=== PATIENT | male | born 1990 | race American Indian/Alaskan Native ===

== ENCOUNTER 2019-09-09 10:27 | Emergency (ER) | payer SELFPAY ==
--- NOTE | 2019-09-09 11:32 | Emergency Department Report ---
ED Rash HPI - HPI Chief Complaint: Skin Rash Stated Complaint: SWOLLEN FACE Time Seen by Provider: 09/09/19 11:06 Duration: 2 Days Location: Other (face and ears) Suspected Cause: Unknown Rash Symptoms: Yes Facial Swelling (mild), Yes Peeling, No Itching, No Tongue/Oral Swelling, No Breathing Difficulties, No Choking Sensation, No Wheezing/Dyspnea, No Blistering, No Fever, No Lightheaded, No Malaise, No Myalgias Severity: moderate Other History: 29-year-old male presents with worsening facial tingling and rash for the past 2 days. Patient states she hasn't taken antibiotics, prednisone and antifungal this past week. Patient states symptoms are not getting better. He denies fevers/chills/nausea vomiting or any other symptoms. She sits rashes use. Full due to the swelling but no itching. He denies taking any other medications prior to onset of symptoms, ED Review of Systems ROS: Stated complaint: SWOLLEN FACE Other details as noted in HPI Comment: All other systems reviewed and negative ED Past Medical Hx - Past Medical History Previous Medical History?: No - Surgical History Past Surgical History?: No - Social History Smoking Status: Current Every Day Smoker Substance Use Type: Marijuana - Medications Home Medications: Home Medications Medication Instructions Recorded Confirmed Last Taken Type Cetirizine HCl [ZyrTEC] 10 mg PO DAILY #30 capsule 08/13/19 Unknown Rx predniSONE [Deltasone] 20 mg PO DAILY #5 tablet 08/13/19 Unknown Rx Penicillin V Potassium 500 mg PO QID #40 tablet 09/09/19 Unknown Rx Triamcinolone 0.1% [Kenalog 0.1% 1 applic TP TID #4 tube 09/09/19 Unknown Rx CREAM] Rash Exam - Exam General: Vital signs noted. No distress. Alert and acting appropriately. HEENT: No Periorbital Edema, No Conjuctival Injection, No Chemosis, No Perioral Edema, No Tongue Edema, No Uvular Edema, No Compromised Airway, No Drooling Lungs: Yes Good Air Exchange (Normal Breath Sounds), No Wheezes, No Ronchi, No Stridor, No Cough, No Labored Respirations, No Retractions, No Use of Accessory Muscles, No Other Abnormal Lung Sounds Heart: Yes Regular, No Murmur Skin: Yes Weeping, Yes Tenderness, Yes Erythema, No Urticarial Rash, No Maculopapular Rash, No Morbilliform rash, No Bulla(e), No Excoriations, No Edema, No Encrustations, No Other Other: Positive: Abdomen Normal, Neurologic Normal, Musculoskeletal Normal Critical care attestation.: If time is entered above; I have spent that time in minutes in the direct care of this critically ill patient, excluding procedure time. ED Disposition Clinical Impression: Rash and other nonspecific skin eruption Disposition: TO HOME OR SELFCARE Is pt being admited?: No Does the pt Need Aspirin: No Condition: Stable Instructions: Impetigo (ED), Acute Rash (ED) Additional Instructions: Make sure to follow up with the primary care physician as discussed. Take all your medications as you've been prescribed. If you have any worsening symptoms or develop new symptoms please return to ED immediately. Prescriptions: Triamcinolone 0.1% [Kenalog 0.1% CREAM] 1 applic TP TID #4 tube Penicillin V Potassium 500 mg PO QID #40 tablet Referrals: YODIT CARRANZA MD [Staff Physician] - 3-5 Days Forms: Work/School Release Form(ED) Time of Disposition: 11:52
[2019-09-09] MEDS ORDERED: DECADRON IM ONE (11:43)
[2019-09-09 12:43] VITALS: BP 142/81
== END 2019-09-09 12:41 | disposition home or self-care (01) ==
LOC: ED 10:27
DX: R21 Rash and other nonspecific skin eruption (principal); F17.200 Nicotine dependence, unspecified, uncomplicated; F12.10 Cannabis abuse, uncomplicated; Z79.899 Other long term (current) drug therapy; Z91.013 Allergy to seafood
CPT/HCPCS: 96372; 99282; J1100

== ENCOUNTER 2019-11-09 13:14 | Emergency (ER) | payer SELFPAY ==
[2019-11-09 17:59] VITALS: BP 125/72
== END 2019-11-09 17:59 | disposition home or self-care (01) ==
LOC: ED 13:14
DX: L30.9 Dermatitis, unspecified (principal); F17.200 Nicotine dependence, unspecified, uncomplicated; Z79.899 Other long term (current) drug therapy; Z91.013 Allergy to seafood
CPT/HCPCS: 36415; 80048; 85025; 96374; 96375; 96376; 99283; J2270; J2405; J2930

== ENCOUNTER 2019-12-09 17:35 | Emergency (ER) | payer SELFPAY ==
[2019-12-09 19:49] VITALS: BP 133/90
--- NOTE | 2019-12-09 19:58 | Emergency Department Report ---
ED Rash HPI - HPI Chief Complaint: Skin Rash Stated Complaint: FACE SWOLLEN Time Seen by Provider: 12/09/19 19:48 Duration: chronic histor but worsen since August2019 Location: Other (FAce and arms) Rash Symptoms: Yes Itching, Yes Peeling, No Breathing Difficulties, No Choking Sensation, No Wheezing/Dyspnea Severity: severe (eczema flare up) ED Review of Systems ROS: Stated complaint: FACE SWOLLEN Other details as noted in HPI Comment: All other systems reviewed and negative ED Past Medical Hx - Past Medical History Previous Medical History?: Yes Additional medical history: Eczema - Surgical History Past Surgical History?: No - Social History Smoking Status: Never Smoker Substance Use Type: None - Medications Home Medications: Home Medications Medication Instructions Recorded Confirmed Last Taken Type Cetirizine HCl [ZyrTEC] 10 mg PO DAILY #30 capsule 08/13/19 Unknown Rx predniSONE [Deltasone] 20 mg PO DAILY #5 tablet 08/13/19 Unknown Rx Penicillin V Potassium 500 mg PO QID #40 tablet 09/09/19 Unknown Rx Triamcinolone 0.1% [Kenalog 0.1% 1 applic TP TID #4 tube 09/09/19 Unknown Rx CREAM] Ondansetron [Zofran Odt] 4 mg PO Q8HR PRN #14 tab.rapdis 11/09/19 Unknown Rx Prednisone [predniSONE 10 mg 10 mg PO .TAPER #1 tab.ds.pk 11/09/19 Unknown Rx (6-Day Pack, 21 Tabs)] traMADoL [Ultram 50 MG tab] 50 mg PO Q4HR PRN #14 tablet 11/09/19 Unknown Rx Betamethasone/Propylene Glyc 1 gm TP BID #90 oint...g. 12/09/19 Unknown Rx [Diprolene 0.05% Ointment] Chlorhexidine Gluconate 5 ml TP BID #240 liquid 12/09/19 Unknown Rx [Antiseptic Skin Cleanser] hydrOXYzine HCL [Atarax] 25 mg PO Q6HR PRN #30 tablet 12/09/19 Unknown Rx predniSONE [Deltasone] 50 mg PO QDAY #7 tab 12/09/19 Unknown Rx Rash Exam - Exam General: Vital signs noted. No distress. Alert and acting appropriately. HEENT: No Periorbital Edema, No Conjuctival Injection, No Chemosis, No Perioral Edema, No Tongue Edema, No Uvular Edema, No Compromised Airway, No Drooling Lungs: Yes Good Air Exchange, No Wheezes, No Ronchi, No Stridor, No Cough, No Labored Respirations, No Retractions, No Use of Accessory Muscles, No Other Abnormal Lung Sounds Heart: Yes Regular, No Murmur Front/Back of Body, Lg (Color): 1 - severe eczema to face. excoratedwtih broken skin 2 - severe eczema rash to both hands Skin: Yes Excoriations (severe eczema rash to face andhand with severalfissures.), Yes Encrustations, No Urticarial Rash, No Maculopapular Rash, No Morbilliform rash, No Bulla(e) ED Course Vital Signs 12/09/19 19:48 Temperature 98.3 F Pulse Rate 107 H Respiratory 16 Rate Blood Pressure 133/90 O2 Sat by Pulse 98 Oximetry Critical care attestation.: If time is entered above; I have spent that time in minutes in the direct care of this critically ill patient, excluding procedure time. ED Disposition Clinical Impression: Eczema Disposition: DC-01 TO HOME OR SELFCARE Is pt being admited?: No Does the pt Need Aspirin: No Condition: Stable Instructions: Eczema (ED) Prescriptions: Chlorhexidine Gluconate [Antiseptic Skin Cleanser] 5 ml TP BID #240 liquid hydrOXYzine HCL [Atarax] 25 mg PO Q6HR PRN #30 tablet PRN Reason: Itching predniSONE [Deltasone] 50 mg PO QDAY #7 tab Betamethasone/Propylene Glyc [Diprolene 0.05% Ointment] 1 gm TP BID #90 oint...g. Referrals: RYNE NUNN MD [Staff Physician] - 3-5 Days
== END 2019-12-09 20:00 | disposition home or self-care (01) ==
LOC: ED 17:35
DX: L30.9 Dermatitis, unspecified (principal); Z79.899 Other long term (current) drug therapy; Z91.013 Allergy to seafood

== ENCOUNTER 2020-03-24 05:52 | Emergency (ER) | payer MEDICAID ==
[2020-03-24] MEDS ORDERED: dexAMETHasone 20 MG/5 ML VIAL IM ONE (06:19)
[2020-03-24] MEDS ORDERED: hydrOXYzine HCL 25 MG TAB PO ONE (06:20)
--- NOTE | 2020-03-24 06:21 | Emergency Department Report ---
ED General Adult HPI - General Chief complaint: Skin/Abscess/Foreign Body Stated complaint: ALLERGIC REACTION Time Seen by Provider: 03/24/20 06:08 Source: patient Mode of arrival: Ambulatory Limitations: No Limitations - History of Present Illness Initial comments: Patient presents to the emergency department with a chief complaint of eczema flare. Patient states that he has not had medication for his eczema quite some time and over the last couple of days it has flared up. Patient complains of severe itching and cracking of the skin of his arms. Patient states he normally takes steroids by mouth and steroid cream to help with his eczema. Patient has no other complaints. -: Gradual Location: upper extremity Radiation: non-radiation Severity scale (0 -10): 0 Consistency: constant Improves with: none Worsens with: none Associated Symptoms: denies other symptoms Treatments Prior to Arrival: none - Related Data Previous Rx's Medication Instructions Recorded Last Taken Type Cetirizine HCl [ZyrTEC] 10 mg PO DAILY #30 capsule 08/13/19 Unknown Rx predniSONE [Deltasone] 20 mg PO DAILY #5 tablet 08/13/19 Unknown Rx Penicillin V Potassium 500 mg PO QID #40 tablet 09/09/19 Unknown Rx Triamcinolone 0.1% [Kenalog 0.1% 1 applic TP TID #4 tube 09/09/19 Unknown Rx CREAM] Ondansetron [Zofran Odt] 4 mg PO Q8HR PRN #14 tab.rapdis 11/09/19 Unknown Rx Prednisone [predniSONE 10 mg 10 mg PO .TAPER #1 tab.ds.pk 11/09/19 Unknown Rx (6-Day Pack, 21 Tabs)] traMADoL [Ultram 50 MG tab] 50 mg PO Q4HR PRN #14 tablet 11/09/19 Unknown Rx Betamethasone/Propylene Glyc 1 gm TP BID #90 oint...g. 12/09/19 Unknown Rx [Diprolene 0.05% Ointment] Chlorhexidine Gluconate 5 ml TP BID #240 liquid 12/09/19 Unknown Rx [Antiseptic Skin Cleanser] hydrOXYzine HCL [Atarax] 25 mg PO Q6HR PRN #30 tablet 12/09/19 Unknown Rx predniSONE [Deltasone] 50 mg PO QDAY #7 tab 12/09/19 Unknown Rx Cetirizine HCl/Pseudoephedrine 1 each PO DAILY 30 Days #30 03/24/20 Unknown Rx [Zyrtec-D Tablet] tab.er.12h Prednisone [predniSONE 10 mg 10 mg PO .TAPER #1 tab.ds.pk 03/24/20 Unknown Rx (6-Day Pack, 21 Tabs)] Triamcinolone 0.1% [Kenalog 0.1% 1 applic TP TID #1 tube 03/24/20 Unknown Rx CREAM] hydrOXYzine HCL [Atarax] 25 mg PO Q6HR PRN #24 tablet 03/24/20 Unknown Rx Allergies Allergy/AdvReac Type Severity Reaction Status Date / Time shellfish derived Allergy Angioedema Verified 08/13/19 12:22 ED Review of Systems ROS: Stated complaint: ALLERGIC REACTION Other details as noted in HPI Comment: All other systems reviewed and negative Constitutional: denies: chills, fever Eyes: denies: eye pain, eye discharge, vision change ENT: denies: ear pain, throat pain Respiratory: denies: cough, shortness of breath, wheezing Cardiovascular: denies: chest pain, palpitations Endocrine: no symptoms reported Gastrointestinal: denies: abdominal pain, nausea, diarrhea Genitourinary: denies: urgency, dysuria Musculoskeletal: denies: back pain, joint swelling, arthralgia Skin: rash, other. denies: lesions Neurological: denies: headache, weakness, paresthesias Psychiatric: denies: anxiety, depression Hematological/Lymphatic: denies: easy bleeding, easy bruising ED Past Medical Hx - Past Medical History Previous Medical History?: Yes Additional medical history: Eczema - Surgical History Past Surgical History?: No - Social History Smoking Status: Current Every Day Smoker Substance Use Type: None - Medications Home Medications: Home Medications Medication Instructions Recorded Confirmed Last Taken Type Cetirizine HCl [ZyrTEC] 10 mg PO DAILY #30 capsule 08/13/19 Unknown Rx predniSONE [Deltasone] 20 mg PO DAILY #5 tablet 08/13/19 Unknown Rx Penicillin V Potassium 500 mg PO QID #40 tablet 09/09/19 Unknown Rx Triamcinolone 0.1% [Kenalog 0.1% 1 applic TP TID #4 tube 09/09/19 Unknown Rx CREAM] Ondansetron [Zofran Odt] 4 mg PO Q8HR PRN #14 tab.rapdis 11/09/19 Unknown Rx Prednisone [predniSONE 10 mg 10 mg PO .TAPER #1 tab.ds.pk 11/09/19 Unknown Rx (6-Day Pack, 21 Tabs)] traMADoL [Ultram 50 MG tab] 50 mg PO Q4HR PRN #14 tablet 11/09/19 Unknown Rx Betamethasone/Propylene Glyc 1 gm TP BID #90 oint...g. 12/09/19 Unknown Rx [Diprolene 0.05% Ointment] Chlorhexidine Gluconate 5 ml TP BID #240 liquid 12/09/19 Unknown Rx [Antiseptic Skin Cleanser] hydrOXYzine HCL [Atarax] 25 mg PO Q6HR PRN #30 tablet 12/09/19 Unknown Rx predniSONE [Deltasone] 50 mg PO QDAY #7 tab 12/09/19 Unknown Rx Cetirizine HCl/Pseudoephedrine 1 each PO DAILY 30 Days #30 03/24/20 Unknown Rx [Zyrtec-D Tablet] tab.er.12h Prednisone [predniSONE 10 mg 10 mg PO .TAPER #1 tab.ds.pk 03/24/20 Unknown Rx (6-Day Pack, 21 Tabs)] Triamcinolone 0.1% [Kenalog 0.1% 1 applic TP TID #1 tube 03/24/20 Unknown Rx CREAM] hydrOXYzine HCL [Atarax] 25 mg PO Q6HR PRN #24 tablet 03/24/20 Unknown Rx ED Physical Exam - General Limitations: No Limitations General appearance: alert, in no apparent distress - Head Head exam: Present: atraumatic, normocephalic - Eye Eye exam: Present: normal appearance, PERRL, EOMI - ENT ENT exam: Present: mucous membranes moist - Neck Neck exam: Present: normal inspection - Respiratory Respiratory exam: Present: normal lung sounds bilaterally. Absent: respiratory distress - Cardiovascular Cardiovascular Exam: Present: regular rate, normal rhythm. Absent: systolic murmur, diastolic murmur, rubs, gallop - GI/Abdominal GI/Abdominal exam: Present: soft - Rectal Rectal exam: Present: deferred - Extremities Exam Extremities exam: Present: other (Patient has cracking of the skin at the joints of his elbow and eczema-like rash that covers his entire upper extremities) - Back Exam Back exam: Present: normal inspection - Neurological Exam Neurological exam: Present: alert, oriented X3, CN II-XII intact. Absent: motor sensory deficit - Psychiatric Psychiatric exam: Present: normal affect, normal mood - Skin Skin exam: Present: warm, dry, intact, normal color. Absent: rash ED Course Vital Signs 03/24/20 05:55 Temperature 98.4 F Pulse Rate 124 H Respiratory 20 Rate Blood Pressure 174/132 O2 Sat by Pulse 100 Oximetry ED Medical Decision Making - Medical Decision Making Plan of care discussed with patient Critical care attestation.: If time is entered above; I have spent that time in minutes in the direct care of this critically ill patient, excluding procedure time. ED Disposition Clinical Impression: Acute eczema Disposition: TO HOME OR SELFCARE Is pt being admited?: No Does the pt Need Aspirin: No Condition: Stable Instructions: Eczema (ED) Additional Instructions: return if worse Prescriptions: hydrOXYzine HCL [Atarax] 25 mg PO Q6HR PRN #24 tablet PRN Reason: Itching Triamcinolone 0.1% [Kenalog 0.1% CREAM] 1 applic TP TID #1 tube Prednisone [predniSONE 10 mg (6-Day Pack, 21 Tabs)] 10 mg PO .TAPER #1 tab.ds.pk Cetirizine HCl/Pseudoephedrine [Zyrtec-D Tablet] 1 each PO DAILY 30 Days #30 tab.er.12h Referrals: PRIMARY CARE, [Primary Care Provider] - 3-5 Days [facility] [Provider Group] - 3-5 Days [facility] [Provider Group] - 3-5 Days [facility] [place] [Outside] - 3-5 Days Time of Disposition: 06:29
[2020-03-24 06:59] VITALS: BP 171/92
== END 2020-03-24 06:55 | disposition home or self-care (01) ==
LOC: ED 05:52
DX: L30.9 Dermatitis, unspecified (principal); F17.200 Nicotine dependence, unspecified, uncomplicated; Z79.899 Other long term (current) drug therapy; Z91.013 Allergy to seafood
CPT/HCPCS: 96372; 99282; J1100

== ENCOUNTER 2021-04-07 10:52 | Emergency (ER) | payer MEDICAID ==
[2021-04-07 11:08] VITALS: BP 120/92
[2021-04-07] MEDS ORDERED: PE/MO/PET,WH 10 APPLIC/28 GM TUBE PR STA (11:55)
[2021-04-07] MEDS ORDERED: PHENYLEPHRINE/SHARK LIVER/CCB 0.25/3/85.5%(PREP H) RECT SUPP PR STA (11:55)
--- NOTE | 2021-04-07 11:55 | Emergency Department Report ---
- General Chief complaint: Rectal Pain Stated complaint: POSS HEMORROID Time Seen by Provider: 04/07/21 11:46 Source: patient Mode of arrival: Ambulatory Limitations: No Limitations - History of Present Illness Initial comments: Patient is a 30-year-old -[place] male that comes to the emergency room complaining of a bump near his anus. Patient denies any bleeding. Patient has no history of hemorrhoids. Patient is HIV positive he says he does not receive anal sex. Patient does report that he is prone to constipation and that he has had constipation. Patient denies any nausea vomiting diarrhea or abdominal pain . Patient denies any fever or chills. Patient denies any discharge coming from the bump MD complaint: other -: Gradual - Related Data Previous Rx's Medication Instructions Recorded Last Taken Type predniSONE [Deltasone] 20 mg PO DAILY #5 tablet 08/13/19 Unknown Rx Docusate Sodium [Colace] 100 mg PO BID #60 capsule 04/07/21 Unknown Rx Phenyleph/Pramoxin/Glycr/W.pet 51 gm RC BID #1 tube 04/07/21 Unknown Rx [Preparation H Cream] Phenylephrine HCl/[place] Butter 1 each RC DAILY #7 supp.rect 04/07/21 Unknown Rx [Preparation H Suppository] Allergies Allergy/AdvReac Type Severity Reaction Status Date / Time shellfish derived Allergy Angioedema Verified 08/13/19 12:22 Abscess Boil HPI - HPI Chief Complaint: Rectal Pain Stated Complaint: POSS HEMORROID Time Seen by Provider: 04/07/21 11:46 Home Medications: Previous Rx's Medication Instructions Recorded Last Taken Type predniSONE [Deltasone] 20 mg PO DAILY #5 tablet 08/13/19 Unknown Rx Docusate Sodium [Colace] 100 mg PO BID #60 capsule 04/07/21 Unknown Rx Phenyleph/Pramoxin/Glycr/W.pet 51 gm RC BID #1 tube 04/07/21 Unknown Rx [Preparation H Cream] Phenylephrine HCl/[place] Butter 1 each RC DAILY #7 supp.rect 04/07/21 Unknown Rx [Preparation H Suppository] Allergies/Adverse Reactions: Allergies Allergy/AdvReac Type Severity Reaction Status Date / Time shellfish derived Allergy Angioedema Verified 08/13/19 12:22 ED Review of Systems ROS: Stated complaint: POSS HEMORROID Other details as noted in HPI Comment: All other systems reviewed and negative ED Past Medical Hx - Past Medical History Previous Medical History?: Yes Hx HIV: Yes Additional medical history: Eczema - Surgical History Past Surgical History?: No - Family History Family history: no significant - Social History Smoking Status: Never Smoker Substance Use Type: None - Medications Home Medications: Home Medications Medication Instructions Recorded Confirmed Last Taken Type predniSONE [Deltasone] 20 mg PO DAILY #5 tablet 08/13/19 Unknown Rx Docusate Sodium [Colace] 100 mg PO BID #60 capsule 04/07/21 Unknown Rx Phenyleph/Pramoxin/Glycr/W.pet 51 gm RC BID #1 tube 04/07/21 Unknown Rx [Preparation H Cream] Phenylephrine HCl/[place] Butter 1 each RC DAILY #7 supp.rect 04/07/21 Unknown Rx [Preparation H Suppository] ED Physical Exam - General Limitations: No Limitations General appearance: alert, in no apparent distress - Head Head exam: Present: atraumatic, normocephalic - Eye Eye exam: Present: normal appearance - ENT ENT exam: Present: mucous membranes moist - Neck Neck exam: Present: normal inspection - Respiratory Respiratory exam: Present: normal lung sounds bilaterally. Absent: respiratory distress - Cardiovascular Cardiovascular Exam: Present: regular rate, normal rhythm. Absent: systolic murmur, diastolic murmur, rubs, gallop - GI/Abdominal GI/Abdominal exam: Present: soft, normal bowel sounds - Rectal Rectal exam: Present: other (HEMORRHOID) - Extremities Exam Extremities exam: Present: normal inspection - Back Exam Back exam: Present: normal inspection - Neurological Exam Neurological exam: Present: alert, oriented X3 - Psychiatric Psychiatric exam: Present: normal affect, normal mood - Skin Skin exam: Present: warm, dry, intact, normal color. Absent: rash ED Course Vital Signs 04/07/21 04/07/21 11:07 12:10 Temperature 98.6 F Pulse Rate 95 H Respiratory 20 18 Rate Blood Pressure 120/92 O2 Sat by Pulse 100 Oximetry ED Medical Decision Making - Medical Decision Making Vital Signs 04/07/21 04/07/21 11:07 12:10 Temperature 98.6 F Pulse Rate 95 H Respiratory 20 18 Rate Blood Pressure 120/92 O2 Sat by Pulse 100 Oximetry hemorrhoid noted on exam-no abscess. No pilonidal cyst no bleeding no hx of the same HIV pos - no anal sex pt states he does tend to be constipated [place] suppository and cream Pt educated on dc plan of care for hemorrhoids and he verbalizes understanding. dc home with pcp follow up - Differential Diagnosis hemorrhoid Critical care attestation.: If time is entered above; I have spent that time in minutes in the direct care of this critically ill patient, excluding procedure time. ED Disposition Clinical Impression: Acute hemorrhoid Disposition: DC-01 TO HOME OR SELFCARE Is pt being admited?: No Does the pt Need Aspirin: No Condition: Stable Instructions: Hemorrhoids, [id number] Additional Instructions: CONTINUE DAILY MEDS FOLLOW UP WITH PCP REFERRAL BELOW SEE HIM NEXT WEEK MED ORDERED TODAY Prescriptions: Docusate Sodium [Colace] 100 mg PO BID #60 capsule Phenyleph/Pramoxin/Glycr/W.pet [Preparation H Cream] 51 gm RC BID #1 tube Phenylephrine HCl/[place] Butter [Preparation H Suppository] 1 each RC DAILY #7 supp.rect Referrals: RYNE NUNN MD [Staff Physician] - 3-5 Days Forms: Work/School Release Form(ED) Time of Disposition: 11:59
[2021-04-07] MEDS ORDERED: IBUPROFEN 800 MG TAB PO ONE (11:56)
== END 2021-04-07 13:24 | disposition home or self-care (01) ==
LOC: ED 10:52
DX: K64.9 Unspecified hemorrhoids (principal); Z91.013 Allergy to seafood; Z79.899 Other long term (current) drug therapy; Z21 Asymptomatic human immunodeficiency virus [HIV] infection status

== ENCOUNTER 2021-04-09 15:03 | Emergency (ER) | payer MEDICAID | END 2021-04-09 18:33 | disposition left against medical advice (07) | LOC: ED 15:03 | DX: K64.9 Unspecified hemorrhoids (principal); Z53.21 Procedure and treatment not carried out due to patient leaving prior to being seen by health care provider ==